=== PATIENT | male | born 1995 | race Caucasian/White ===

== ENCOUNTER 2020-05-26 23:34 | Emergency (ER) | payer OTHER ==
[2020-05-26 23:43] VITALS: BP 138/73
[2020-05-27] MEDS ORDERED: ONDANSETRON HCL INJ/PF 4 MG/2 ML SDV IV ONE (00:13)
[2020-05-27] MEDS ORDERED: NORMAL SALINE 1000 ML 1,000 ML IV ONE ×2 (00:14)
--- NOTE | 2020-05-27 00:15 | ER Document Report ---
ED Medical Screen (RME) - General Stated Complaint: HEAT EXHAUSTION Time Seen by Provider: 05/27/20 00:09 Mode of Arrival: Ambulatory Information source: Patient Notes: Otherwise healthy 24-year-old male presenting to the emergency department with concern for possible heat stroke. Patient reports he was working outside today when he started feeling ill around 11:00. He states he pushed through the day he continued working outside. He states he has had nausea with vomiting and all over body aches through the evening and night. He states he has been in the [employer] before and has had heat exhaustion multiple times and this feels the same. Patient breathing heavily, vital signs completely normal. No acute distress noted. I have greeted and performed a rapid initial assessment of this patient. A comp rehensive ED assessment and evaluation of the patient, analysis of test results and completion of the medical decision making process will be conducted by additional ED providers. I have specifically instructed the patient or family members with the patient to immediately return to any nursing staff should anything change in the patient's condition or with their chief complaint. - Related Data Allergies/Adverse Reactions: No Known Allergies Allergy (Unverified 05/27/20 00:09) Physical Exam - Vital signs Vitals: Temp Pulse Resp BP Pulse Ox 98.8 F 81 12 138/73 H 99 05/26/20 23:41 05/26/20 23:41 05/26/20 23:41 05/26/20 23:41 05/26/20 23:41 Course - Vital Signs Vital signs: Temp Pulse Resp BP Pulse Ox 98.8 F 81 12 138/73 H 99 05/26/20 23:41 05/26/20 23:41 05/26/20 23:41 05/26/20 23:41 05/26/20 23:41
== END 2020-05-27 01:34 | disposition left against medical advice (07) ==
LOC: ER 23:34
DX: R11.2 Nausea with vomiting, unspecified (principal); M79.10 Myalgia, unspecified site; T67.5XXA Heat exhaustion, unspecified, initial encounter; X30.XXXA Exposure to excessive natural heat, initial encounter
CPT/HCPCS: 99281